=== PATIENT | male | born 1965 | race Caucasian/White ===

== ENCOUNTER 2016-09-29 21:11 | Emergency (ER) | payer BC, MEDICAID ==
[2016-09-29 21:24] VITALS: TEMP 99
--- NOTE | 2016-09-29 22:26 | ED PDOC ---
Arrival/HPI - General Chief Complaint: Lower Extremity Problem/Injury Time Seen by Provider: 09/29/16 21:45 Historian: Patient - History of Present Illness Narrative History of Present Illness (Text): 09/29/16 22:27 50 year old male, with no significant past medical history, is presenting to the emergency department with complaints of right-sided knee pain status post mechanical fall earlier today. Patient states he was walking when he tripped and fell on to his right knee on the ground. Patient reports pain and swelling to the right knee. Patient denies any back pain, chest pain, weakness/numbness/ tingling in the extremity, or any other symptoms at this time. Time/Duration: 4-6 hours Symptom Onset: Sudden Symptom Course: Unchanged Severity Level: Mild Activities at Onset: Light Context: Walking, Tripped Past Medical History - Provider Review Nursing Documentation Reviewed: Yes - Pulmonary Hx Respiratory Disorders: No - Neurological Hx Neurological Disorder: No - HEENT Hx HEENT Disorder: No - Renal Hx Renal Disorder: No - Endocrine/Metabolic Hx Endocrine Disorders: No - Hematological/Oncological Hx Blood Disorders: No - Integumentary Hx Dermatological Disorder: No - Musculoskeletal/Rheumatological Hx Musculoskeletal Disorders: No - Gastrointestinal Hx Gastrointestinal Disorders: No - Genitourinary/Gynecological Hx Genitourinary Disorders: No - Psychiatric Hx Psychophysiologic Disorder: No Hx Substance Use: No Family/Social History - Physician Review Nursing Documentation Reviewed: Yes Family/Social History: Unknown Family HX Smoking Status: Never Smoked Hx Alcohol Use: Yes Frequency of alcohol use: Socially Hx Substance Use: No Allergies/Home Meds Allergies/Adverse Reactions: Allergies Penicillins Allergy (Verified 09/29/16 21:20) SHORTNESS OF BREATH Review of Systems - Physician Review All systems were reviewed & negative as marked: Yes - Review of Systems Constitutional: absent: Fevers Cardiovascular: absent: Chest Pain Gastrointestinal: absent: Nausea, Vomiting Musculoskeletal: Arthralgias (+right knee pain). absent: Back Pain Physical Exam Vital Signs Reviewed: Yes Vital Signs Temp Pulse Resp BP Pulse Ox 09/29/16 22:43 72 17 120/80 100 09/29/16 21:20 99.0 F 77 16 114/77 99 Temperature: Afebrile Blood Pressure: Normal Pulse: Regular Respiratory Rate: Normal Appearance: Positive for: Well-Appearing, Non-Toxic, Comfortable Pain Distress: None Mental Status: Positive for: Alert and Oriented X 3 - Systems Exam Head: Present: Atraumatic, Normocephalic Pupils: Present: PERRL Extroacular Muscles: Present: EOMI Conjunctiva: Present: Normal Mouth: Present: Moist Mucous Membranes Neck: Present: Normal Range of Motion Back: Present: Normal Inspection Upper Extremity: Present: Normal Inspection. No: Cyanosis, Edema Lower Extremity: Present: Normal Inspection, NORMAL PULSES, Normal ROM, Neurovascularly Intact, Capillary Refill < 2 s. No: Edema, Cyanosis, Tenderness , Swelling, Erythema, Deformity, Temperature Abnormalties Neurological: Present: GCS=15, CN II-XII Intact, Speech Normal Skin: Present: Warm, Dry, Normal Color. No: Rashes Psychiatric: Present: Alert, Oriented x 3, Normal Insight, Normal Concentration Medical Decision Making ED Course and Treatment: 09/29/16 21:48 Impression: 50 year old male with right-sided knee pain. Differential Diagnosis included but are not limited to: fracture vs. contusion vs. sprain Plan: -- X-ray right knee -- Ultram -- Reassess and disposition Progress Notes: 09/29/16 22:45 X-Ray Right knee reviewed, no acute fracture. 09/29/16 22:55 Reevaluation: On reevaluation the patient feels better and is in no acute distress. I have discussed the results and plan with the patient, who expresses understanding. Patient given the opportunity to ask question, all questions were answered and there is agreement with the plan to discharge the patient home. Patient is stable for discharge. Patient was instructed to follow up with physician/clinic in 1-2 days or return if symptoms persist/worsen or new concerning symptoms arise. - RAD Interpretation Radiology Orders: 09/29/16 21:50 KNEE RIGHT 2 VIEWS (AP & LAT) [RAD] Stat Radar Tester: ED Physician - Medication Orders Current Medication Orders: Discontinued Medications Tramadol HCl (Ultram) 50 mg PO STAT STA Stop: 09/29/16 22:35 Last Admin: 09/29/16 22:52 Dose: 50 mg - Scribe Statement The provider has reviewed the documentation as recorded by the Nicholas Jones training under [place]. Provider Scribe Attestation: All medical record entries made by the Nicholas were at my direction and personally dictated by me. I have reviewed the chart and agree that the record accurately reflects my personal performance of the history, physical exam, medical decision making, and the department course for this patient. I have also personally directed, reviewed, and agree with the discharge instructions and disposition. Disposition/Present on Arrival - Present on Arrival Any Indicators Present on Arrival: No History of DVT/PE: No History of Uncontrolled Diabetes: No Urinary Catheter: No History of Decub. Ulcer: No History Surgical Site Infection Following: None - Disposition Have Diagnosis and Disposition been Completed?: Yes Diagnosis: Sprain of right knee Disposition: HOME/ ROUTINE Disposition Time: 22:55 Condition: GOOD Discharge Instructions (ExitCare): Knee Sprain (ED) Prescriptions: Tramadol HCl [Ultram] 50 mg PO QID #8 tab Referrals: Pasha Vega III, MD [Medical Doctor] - Follow up with primary Raphael To MD [Primary Care Provider] - Follow up with primary
[2016-09-29 22:43] VITALS: BP 120/80; RESP 17; O2SAT 100
[2016-09-29 22:44] VITALS: PULSE 72
--- NOTE | 2016-09-30 09:29 | RAD ---
PROCEDURE: Right Knee Radiographs. HISTORY: fall COMPARISON: None. FINDINGS: BONES: Normal. No fracture. JOINTS: Normal. No osteoarthritis. JOINT EFFUSION: None. OTHER FINDINGS: None. IMPRESSION: Normal radiographs of the right knee.
== END 2016-09-29 22:55 | disposition home or self-care (01) ==
LOC: ED 21:11
DX: S83.91XA Sprain of unspecified site of right knee, initial encounter (principal); W01.0XXA Fall on same level from slipping, tripping and stumbling without subsequent striking against object, initial encounter; Y93.01 Activity, walking, marching and hiking